=== PATIENT | male | born 1955 | race Caucasian/White ===

== ENCOUNTER 2021-05-11 01:26 | Day surgery (SDC) | payer MEDICARE, SELFPAY ==
[2021-05-11 08:51] VITALS: BP 148/104; PULSE 65; RESP 16; TEMP 36.1; O2SAT 98
--- NOTE | 2021-05-11 09:16 | WPDGICN ---
Assessment and Plan Assessment and plan (1) Family history of colonic polyps: Code(s): Z83.71 - Family history of colonic polyps Status: Acute Assessment and Plan: Patient has a family history of colon polyps. For this reason surveillance colonoscopy is advised. Further recommendations will be given after endoscopy. (2) Regurgitation of food: Code(s): R11.10 - Vomiting, unspecified Status: Acute Assessment and Plan: Patient notices hoarseness along with occasional regurgitation of food suspicious for acid reflux. He has had some improvement on a brief trial of PPI therapy. Plan is for EGD to assess for indications of possible underlying acid reflux disease. GI Consult Note Consult date/time: 05/11/21 09:16 HPI: Rolf Calle is a 66 year old male Presents for both colonoscopy and EGD. Patient has family history of colon polyps in his mother. Patient reports his current weight appetite bowel movements are normal. Last colonoscopy 7 years ago was unremarkable. Presents today for follow-up colonoscopy. Additionally patient has occasional regurgitation predominantly nocturnally. He has recently complained of some hoarseness and a cough. He denies any heartburn. Patient treated empirically with proton pump inhibitor notice some improvement. This improved after brief trial he currently is not taking this medication. He is referred for EGD to assess for any possible underlying evidence of acid reflux. He denies any dysphagia. He has had no bleeding. EGD will be performed today. Review of Systems Review of Systems: All systems reviewed & are unremarkable except as noted in HPI and below PMFSH Past Medical History Medical History Glucose intolerance Family History Family History Father Diabetes mellitus Hypertension Cerebrovascular accident Mother Diabetes mellitus Hypertension Other Family history of cardiovascular disease Social History Social History Smoking status: Never smoker Alcohol intake: current Living arrangements: with family Spiritual care concerns: No Meds Home Medications and Allergies Home Medications Medication Instructions Recorded Confirmed Type aspirin 81 mg tablet,delayed 81 mg PO DAILY 11/12/19 04/29/21 History release cholecalciferol (vitamin D3) 50 50 mcg PO DAILY 11/12/19 04/29/21 History mcg (2,000 unit) capsule metformin 500 mg tablet,extended 1,000 mg PO DAILY #180 tablet 12/14/20 04/29/21 Rx release 24 hr irbesartan 300 1 tablet PO DAILY #90 tablet 04/06/21 04/29/21 Rx mg-hydrochlorothiazide 12.5 mg tablet atorvastatin 20 mg tablet See Rx Instructions .ROUTE 05/10/21 Rx .COMPLEX #90 tablet Allergies Allergy/AdvReac Type Severity Reaction Status Date / Time skin cleanser combination Allergy Unknown Skin Verified 05/11/21 08:49 no. 10 Reaction [Rosanil] skin cleanser combination Allergy Unknown Skin Verified 05/11/21 08:49 no.23 Reaction [Sumadan] Sulfa (Sulfonamide Allergy Unknown SWOLLEN EYE Verified 05/11/21 08:49 Antibiotics) sulfacetamide Allergy Unknown Skin Verified 05/11/21 08:49 Reaction sulfur [Avar] Allergy Unknown Skin Verified 05/11/21 08:49 Reaction tobramycin Allergy Unknown Skin Verified 05/11/21 08:49 Reaction urea [Rosula] Allergy Unknown Skin Verified 05/11/21 08:49 Reaction Vital Signs Vital Signs - 24 hr 05/11/21 08:51 Temperature 97.0 F L Pulse Rate 65 Respiratory Rate 16 Blood Pressure 148/104 H Pulse Oximetry 98 Exam Narrative: Physical exam reveals patient be alert. Vital signs stable. HEENT exam is unremarkable. Patient is anicteric. Lungs are clear to auscultation and percussion. Heart is without murmur or e
[2021-05-11] MEDS: LACTATED RINGERS 1,000 ML 150 ML IV CONT (09:19)
[2021-05-11 09:28] LABS: Glucose Point of Care 140 mg/dl (65-105)
--- NOTE | 2021-05-11 09:51 | WPDANESEPPF ---
Anes - Initial Pre Proc Eval Procedure: Operation Date: 05/11/21 10:00 Proposed Procedures p Esophagogastroduodenoscopy & Screening Colonoscopy - Peter Thomason MD Date/Time: 05/11/21 09:51 Surgeon: Peter Thomason MD Pre Op Diagnosis: hoarseness, cough, neoplasm screening Patient Data Age: 66 Gender: M Height: 1.75 m Weight: 89 kg Last Vital Signs Temp 97.0 F L 05/11/21 08:51 Pulse 65 05/11/21 08:51 Resp 16 05/11/21 08:51 BP 148/104 H 05/11/21 08:51 Pulse Ox 98 05/11/21 08:51 Allergies Allergy/AdvReac Type Severity Reaction Status Date / Time skin cleanser combination Allergy Unknown Skin Verified 05/11/21 08:49 no. 10 Reaction [Rosanil] skin cleanser combination Allergy Unknown Skin Verified 05/11/21 08:49 no.23 Reaction [Sumadan] Sulfa (Sulfonamide Allergy Unknown SWOLLEN EYE Verified 05/11/21 08:49 Antibiotics) sulfacetamide Allergy Unknown Skin Verified 05/11/21 08:49 Reaction sulfur [Avar] Allergy Unknown Skin Verified 05/11/21 08:49 Reaction tobramycin Allergy Unknown Skin Verified 05/11/21 08:49 Reaction urea [Rosula] Allergy Unknown Skin Verified 05/11/21 08:49 Reaction Home Medications Medication Instructions Recorded Confirmed Type aspirin 81 mg tablet,delayed 81 mg PO DAILY 11/12/19 05/11/21 History release cholecalciferol (vitamin D3) 50 50 mcg PO DAILY 11/12/19 05/11/21 History mcg (2,000 unit) capsule metformin 500 mg tablet,extended 1,000 mg PO DAILY #180 tablet 12/14/20 05/11/21 Rx release 24 hr irbesartan 300 1 tablet PO DAILY #90 tablet 04/06/21 05/11/21 Rx mg-hydrochlorothiazide 12.5 mg tablet atorvastatin 20 mg tablet See Rx Instructions .ROUTE 05/10/21 05/11/21 Rx .COMPLEX #90 tablet Laboratory Tests 05/11/21 09:25 POC Capillary Glucose 140 mg/dl H mg/dl (65-105) Patient hx anesthesia problems: none Family hx anesthesia problems: none Results Review: All pre-operative results and documents have been reviewed as part of the pre-operative evaluation. [facility] Past Medical History Medical History (Updated 05/11/21 @ 09:51 by Howard Lemos MD) Diabetes mellitus Essential (primary) hypertension Glucose intolerance Mixed hyperlipidemia Family History Family History Father Diabetes mellitus Hypertension Cerebrovascular accident Mother Diabetes mellitus Hypertension Other Family history of cardiovascular disease Social History Social History Smoking status: Never smoker Alcohol intake: current Living arrangements: with family Spiritual care concerns: No Anes - Eval Final PreProcedure Day of Procedure 05/11/21 09:51 Patient weight: overweight Heart: regular rate and rhythm Lungs: clear to auscultation Airway: Mallampati scale class II Neurological: alert and oriented Last oral intake: >/= 8 hours ASA classification: III Emergent: no Anesthetic plan: proceed Anesthesia type and monitoring: general GIVS and standard monitoring Results Review: All pre-operative results and documents have been reviewed as part of the pre-operative evaluation. Informed Consent: The patient's anesthetic plan and its attendant risks and benefits were discussed with the patient/family/POA. Questions were solicited and answers provided to the satisfaction of the patient/family/POA.
[2021-05-11 10:22] VITALS: BP 111/68; PULSE 65; RESP 25; O2SAT 98
[2021-05-11 10:32] VITALS: BP 120/77; PULSE 61; RESP 19; O2SAT 96
[2021-05-11 10:42] VITALS: BP 120/77; PULSE 56; RESP 19; O2SAT 99
== END 2021-05-11 11:06 | disposition home or self-care (01) ==
PROVIDERS: PCP Family Medicine; Visit Provider Internal Medicine Gastroenterology
PROC: 0DJ08ZZ Inspection of Upper Intestinal Tract, Via Natural or Artificial Opening Endoscopic (ICD-10-PCS; CPT 43235; principal; 2021-05-11 10:00)
DX: Z12.11 Encounter for screening for malignant neoplasm of colon (principal); D12.3 Benign neoplasm of transverse colon; K63.5 Polyp of colon; K57.30 Diverticulosis of large intestine without perforation or abscess without bleeding; K64.8 Other hemorrhoids; Z83.71 Family history of colonic polyps; R49.0 Dysphonia; R11.10 Vomiting, unspecified; E11.9 Type 2 diabetes mellitus without complications; I10 Essential (primary) hypertension; E78.5 Hyperlipidemia, unspecified; Z79.84 Long term (current) use of oral hypoglycemic drugs; Z79.82 Long term (current) use of aspirin
CPT/HCPCS: 45385; 43239; 82948; 87081; 88305; J2704; J7120